=== PATIENT | female | born 1965 | race Two or more races ===

== ENCOUNTER 2024-06-23 12:44 | Inpatient (IN) | payer MEDICAID, OTHER ==
[~2024-06-23] VITALS: Ht 162.6 cm; Wt 95.2 kg
[2024-06-23] MEDS: LORazepam 2MG/ML-1ML VIAL IV ONE (12:45)
[2024-06-23] MEDS: ONDANSETRON HCL 4 MG/2 ML VIAL IV ONE (12:45)
[2024-06-23] MEDS ORDERED: LORazepam 2MG/ML-1ML VIAL ONE (12:47)
[2024-06-23] MEDS: ONDANSETRON HCL 4 MG/2 ML VIAL ONE (12:49)
[2024-06-23] MEDS: ADENOSINE 6 MG/2 ML INJ IV ONE ×2 (12:50→12:54)
[2024-06-23] MEDS: AMIODARONE BOLUS KIT 100 ML IV ONE (13:07)
--- NOTE | 2024-06-23 13:12 | ED.PDOC ---
HPI Comments 59 year old female brought in by nurses presents to the ED with chief complaint of tachycardia. 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 Patient is alert and awake, able to answer questions. Patient relays that she tried the Valsalva maneuver multiple times with no relief and was provided LR by nursing staff when taking her down to the ED. Patient denies any chest pain, SOB, headache, or N/V. Time Seen by MD: 13:06 Primary Care Provider: UMAIR Reviewed Notes: Nurses Notes, Medications, Allergies Allergies: Coded Allergies: Hydromorphone (Verified Allergy, Unknown, 06/23/24) Latex (Verified Allergy, Unknown, 06/23/24) Information Source: Patient, Emergency Med Personnel Mode of Arrival: Rud[place]ennis Severity: Moderate Timing: Hours Duration: Since onset Prehospital treatment: IVF Onset: At Rest Cardiac Risk Factors: HTN PE Risk Factors: None History of: None Associated Signs and Symptoms: Palpitations Past Medical History PAST MEDICAL HISTORY: Arthritis, Asthma, HTN Surgical History: Denies all surgeries HEALTH TECH History: Denies all HEALTH TECH Hx Family History Family History: No family hx of DM, No family hx of Heart lisset Social History Smoker: Non-Smoker Alcohol: Denies ETOH Use Drugs: Denies Drug Use Lives In: Home Constitutional: denies: chills, diaphoresis, fatigue, fever, malaise, sweats, weakness, others EENTM: denies: blurred vision, double vision, ear bleeding, ear discharge, ear drainage, ear pain, ear ringing, eye pain, eye redness, hearing loss, mouth pain, mouth swelling, nasal discharge, nose bleeding, nose congestion, nose pain, photophobia, tearing, throat pain, throat swelling, voice changes, others Respiratory: denies: cough, hemoptysis, orthopnea, SOB at rest, shortness of breath, SOB with excertion, stridor, wheezing, others Cardiovascular: reports: lightheadedness, palpitations, others (Tachycardia); denies: chest pain, dizzy spells, diaphoresis, Dyspnea on exertion, edema, irregular heart beat, left arm pain, PND, syncope Gastrointestinal: denies: abdomen distended, abdominal pain, blood streaked bowels, constipated, diarrhea, dysphagia, difficulty swallowing, hematemesis, melena, nausea, poor appetite, poor fluid intake, rectal bleeding, rectal pain, vomiting, others Genitourinary: denies: abnormal vagina bleeding, burning, dyspareunia, dysuria, flank pain, frequency, hematuria, incontinence, pain, , vagina discharge, urgency, others Neurological: reports: dizziness; denies: fainting, headache, left sided numbness, left sided weakness, numbness, paresthesia, pre-existing deficit, right sided numbness, right sided weakness, seizure, speech problems, tingling, tremors, weakness, others Musculoskeletal: denies: back pain, gout, joint pain, joint swelling, muscle pain, muscle stiffness, neck pain, others Integumetry: denies: bruises, change in color, change in hair/nails, dryness, laceration, lesions, lumps, rash, wounds, others Allergic/Immunocompromised: denies: Difficulty Healing, Frequent Infections, Hives, Itching, others Hematologic/Lymphatic: denies: anemia, blood clots, easy bleeding, easy bruising, swollen glands, others Endocrine: denies: excessive hunger, excessive sweating, excessive thirst, excessive urination, flushing, intolerance to cold, intolerance to heat, unexplained weight gain, unexplained weight loss, others Psychiatric: denies: anxiety, bipolar disorder, depression, hopeless, panic disorder, schizophrenia, sleepless, suicidal, others All Other Systems: Reviewed and Negative Physical Exam General Appearance: Normal, Severe Distress HEENT: Normal ENT Inspection, PERRL/EOMI Neck: Full Range of Motion, Non-Tender, Normal, Normal Inspection Respiratory: Chest Non-Tender, Lungs Clear, No Accessory Muscle Use, No Respiratory Distress, Normal Breath Sounds Cardiovascular: No Edema, No JVD, No Murmur, No Gallop, Normal Peripheral Pulses, Tachycardia Breast Exam: Deferred Gastrointestinal: No Organomegaly, Non Tender, No Pulsatile Mass, Normal Bowel Sounds, Soft Genitalia: Deferred Pelvic: Deferred Rectal: Deferred Extremities: No calf tenderness, Normal capillary refill, Normal inspection, Normal range of motion, Non-tender, No pedal edema Musculoskeletal : Apperance: Normal Neurologic: Alert, director embalmer II-XII nml as Tested, No Motor Deficits, Normal Affect, Normal Mood, No Sensory Deficits Cerebellar Function: NOT DONE Reflexes: NOT DONE Skin: Dry, Normal Color, Warm Peripheral Pulses: 3+ Radial (R), 3+ Radial (L) Lymphatic: No Adenopathy Was a procedure done? Was a procedure done?: No CP Differential Dx Differential Diagnosis: A-fib, A-Flutter, Angina, Anxiety / Panic Attack, Atrial Dysrhythmia, Electrolyte Disorder X-Ray, Labs, Meds, VS Vital Signs Date Time Temp Pulse Resp B/P (MAP) Pulse Ox O2 Delivery O2 Flow Rate FiO2 06/23/24 14:04 89 20 141/75 (97) 97 06/23/24 13:52 86 06/23/24 13:47 83 20 96 Nasal Cannula* 2 28 06/23/24 13:47 98 Nasal Cannula* 2 28 06/23/24 13:15 97.8 165 20 140/92 (108) 96 06/23/24 12:51 166 06/23/24 12:47 168 06/23/24 12:45 97.8 165 20 140/92 (108) 96 97.8 Lab Test 06/23/24 14:24 06/23/24 13:36 Range/Units Troponin I High Sensitivity 13 4 </=34 ng/L White Blood Count 8.0 4.4-10.8 10^3/uL Red Blood Count 4.85 4.0-5.20 10^6/uL Hemoglobin 14.8 12.2-16.2 g/dL Hematocrit 43.4 36.0-46.0 % Mean Corpuscular Volume 89.5 80.0-100.0 fL Mean Corpuscular Hemoglobin 30.5 28.0-32.0 pg Mean Corpuscular Hemoglobin Concent 34.1 32.0-36.0 g/dL Red Cell Distribution Width 13.7 11.8-14.3 % Platelet Count 207 140-450 10^3/uL Mean Platelet Volume 10.5 6.9-10.8 fL Neutrophils (%) (Auto) 47.7 37.0-80.0 % Lymphocytes (%) (Auto) 45.3 10.0-50.0 % Monocytes (%) (Auto) 5.0 0.0-12.0 % Eosinophils (%) (Auto) 1.6 0.0-7.0 % Basophils (%) (Auto) 0.4 0.0-2.0 % Neutrophils # (Auto) 3.8 1.6-8.6 10 ^3/uL Lymphocytes # (Auto) 3.6 0.4-5.4 10 ^3/uL Monocytes # (Auto) 0.4 0-1.3 10 ^3/uL Eosinophils # (Auto) 0.1 0-0.8 10 ^3/uL Basophils # (Auto) 0 0-0.2 10 ^3/uL Nucleated Red Blood Cells 0.1 % Sodium Level 144 136-145 mmol/L Potassium Level 3.1 L 3.5-5.1 mmol/L Chloride Level 109 H 98-107 mmol/L Carbon Dioxide Level 25 20-31 mmol/L Anion Gap 10 5-15 Blood Urea Nitrogen 18 9-23 mg/dL Creatinine 0.96 0.550-1.02 mg/dL Glomerular Filtration Rate Calc 68 >90 mL/min BUN/Creatinine Ratio 18.8 10.0-20.0 Serum Glucose 139 H 74-106 mg/dL Calcium Level 9.5 8.7-10.4 mg/dL Magnesium Level 1.8 1.6-2.6 mg/dL Thyroid Stimulating Hormone (TSH) 1.75 0.55-4.78 uIU/mL Current Medications Medications (Trade) Dose Ordered Sig/Cindy Route Start Time Stop Time Status Last Admin Sodium Chloride 1,000 ml @ 150 mls/hr Q6H40M ONCE IV 06/23/24 13:15 06/23/24 19:54 06/23/24 14:31 Amiodarone HCl 100 ml @ 618 mls/hr ONCE ONCE IV 06/23/24 13:15 06/23/24 13:24 DC 06/23/24 13:07 Amiodarone HCl 250 ml @ 33.333 mls/ hr Q7H30M IV 06/23/24 13:15 06/23/24 19:14 06/23/24 14:27 Potassium Bicarbonate (Klor-Con/Ef) 50 meq ONCE ONCE PO 06/23/24 14:45 06/23/24 14:59 DC 06/23/24 15:05 Adenosine (Adenosine) 6 mg ONCE ONCE IV 06/23/24 15:00 06/23/24 15:07 DC 06/23/24 12:50 Patient brought from OR suite. Possibly V-tach versus SVT versus atrial fibrillation. Was given adenosine. Blood pressure stable. Adenosine did not change the rhythm. Rhythm became more irregular. Atrial fibrillation. Started amiodarone. EKG did show tachycardia. On re-evaluation patient slowly getting better. Potassium slightly low. Was given potassium. New onset atrial fibrillation. Explained to the patient. Continue cardiac monitoring. Time of 1ST Reevaluation: 14:06 Reevaluation 1ST: Unchanged Patient Education/Counseling: Diagnosis, Treatment Family Education/Counseling: No Family Present Additional Information The following tests were ordered, and results were reviewed by me: Chest XR, EKG, Echocardiogram, Troponin, CBC, BMP, UA Additional Information was gathered from interviewing the following independent historians: Nursing staff I reviewed and agreed with the following test results read by other providers: Chest XR, Echocardiogram I discussed treatment and results with medical personnel. Departure 1 Departure Time of Disposition: 14:27 Impression: Primary Impression: New onset atrial fibrillation Disposition: ADMITTED INPATIENT Admit to: Med Surg Condition: Guarded Critical Care Note Critical Care Time?: Yes (90 min-critical care time only) Stability Stability form required: No Heart Score Heart Score: Heart Score Response (Comments) Value History Moderate Suspicious 1 EKG Repolarization Disturb 1 Age 45-64 1 Risk Factors 1 or 2 risk factors 1 Troponin Normal limit 0 Total 4 I personally scribed for FATIMAH FORMAN MD ([email or web address]) on 06/23/24 at 13:12. Electronically submitted by Christopher Ayala ([email or web address]). I personally scribed for FATMIAH FORMAN MD ([email or web address]) on 06/23/24 at 16:08. Electronically submitted by Christopher Ayala ([email or web address]). FATIMAH FORMAN MD Jun 23, 2024 13:12
--- NOTE | 2024-06-23 13:27 | DVH ---
EXAM: XY CHEST PORTABLE Indication: sob Technique: Single frontal view of the chest was obtained Comparison: None FINDINGS: Lines and Tubes: None Lungs: No focal consolidation. Pulmonary edema. Pleura: No effusion. No pneumothorax. Cardiomediastinal contours: Prominence of the cardiac silhouette. Bones: No acute osseous abnormality. IMPRESSION: Mild cardiomegaly versus portable technique of exam. Mild pulmonary edema.
[2024-06-23 13:47] VITALS: PULSE 83; RESP 20; O2SAT 96
[2024-06-23 14:03] LABS: Basophils # (auto) 0 10 ^3/uL (0-0.2); Basophils % (auto) 0.4 % (0.0-2.0); Eosinophils # (auto) 0.1 10 ^3/uL (0-0.8); Eosinophils % (auto) 1.6 % (0.0-7.0); Hematocrit 43.4 % (36.0-46.0); Hemoglobin 14.8 g/dL (12.2-16.2); Lymphocytes # (auto) 3.6 10 ^3/uL (0.4-5.4); Lymphocytes % (auto) 45.3 % (10.0-50.0); Mean Corpuscular Hemoglobin 30.5 pg (28.0-32.0); Mean Corpuscular Hgb Conc. 34.1 g/dL (32.0-36.0); Mean Corpuscular Volume 89.5 fL (80.0-100.0); Monocytes # (auto) 0.4 10 ^3/uL (0-1.3); Neutrophils # (auto) 3.8 10 ^3/uL (1.6-8.6); Neutrophils % (auto) 47.7 % (37.0-80.0); Nucleated Red Blood Cells % 0.1 %; Platelet Count (auto) 207 10^3/uL (140-450); Red Blood Cells 4.85 10^6/uL (4.0-5.20); Red Cell Distribution Width 13.7 % (11.8-14.3)
[2024-06-23 14:23] LABS: Sodium 144 mmol/L (136-145)
[2024-06-23 14:24] LABS: Anion Gap 10 (5-15); Calcium 9.5 mg/dL (8.7-10.4); Carbon Dioxide 25 mmol/L (20-31); Chloride 109 mmol/L (98-107); Potassium 3.1 mmol/L (3.5-5.1)
[2024-06-23] MEDS: AMIODARONE 450mg/250ml AE 250 ML IV SCH ×2 (14:27→20:30)
[2024-06-23 14:29] LABS: BUN/Creatinine Ratio 18.8 (10.0-20.0); Blood Urea Nitrogen 18 mg/dL (9-23)
[2024-06-23 14:31] LABS: Glucose 139 mg/dL (74-106)
[2024-06-23] MEDS: SODIUM CHLORIDE 0.9% 1,000 ML IV ONE (14:31)
[2024-06-23] MEDS: MAGNESIUM SULFATE 1GM/100ML 100 ML IV ONE (15:00)
--- NOTE | 2024-06-23 15:01 | DVHINCON2 ---
Date Seen: Jun 23, 2024 Referring Physician MD Arcenio Reason for Consultation Questionable Vtach, then Afib History of Present Illness This is a 59-year-old female patient who presents to the emergency room with palpitations. 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 She mentions that her watch alerted her that her heart rate was elevated in the 160's. 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 She was then brought to the emergency room by coworkers for further evaluation. Initial twelve lead electrocardiogram reveals a wide complex tachycardia with left bundle branch block and prolonged QT interval. ER staff provided the patient with 6 mg of adenosine IV x1 followed by adenosine 12 mg IV x1 with no change in rhythm. ER staff then initiated the patient on an amiodarone bolus and drip and the patient was noted to convert into a normal sinus rhythm. Significant past medical history includes hypertension, asthma, environmental allergies, and obesity. The patient reports that she does not see a clinical material handler in the outpatient setting and does not currently have a primary care physician given that she lost her insurance. Past Medical History Past medical history reviewed. No other significant than mentioned above. Past Surgical History Denies all surgeries Family History Family history reviewed. Social History Denies the use of tobacco, alcohol or illicit drugs. Allergies: Coded Allergies: Hydromorphone (Verified Allergy, Unknown, 06/23/24) Latex (Verified Allergy, Unknown, 06/23/24) Home Meds Home medications reviewed. Current Medications Current Medications Medications (Trade) Dose Ordered Sig/Cindy Route PRN Reason Start Time Stop Time Status Last Admin Amiodarone HCl 250 ml @ 33.333 mls/ hr Q7H30M IV 06/23/24 13:15 06/23/24 19:14 06/23/24 14:27 Review of Systems Constitutional: No symptom reported Ears, Nose, & Throat: No symptom reported Eyes: No symptom reported Neurological: Dizziness, lightheadedness Pulmonary/Respiratory: No symptoms reported Cardiovascular: Palpitations Gastrointestinal: No symptom reported Genitourinary: No symptom reported Musculoskeletal: No symptom reported Skin: No symptom reported Psychiatric: No symptom reported Endocrine: No symptom reported Hematologic/Lymphatic: No symptom reported Vital Signs Vital Signs Date Time Temp Pulse Resp B/P (MAP) Pulse Ox O2 Delivery O2 Flow Rate FiO2 06/23/24 14:04 89 20 141/75 (97) 97 06/23/24 13:47 Nasal Cannula* 2 28 06/23/24 13:15 97.8 Physical Exam General Appearance: Cooperative. Obese Pulmonary/Respiratory: Clear, bilateral breaths sounds. Cardiovascular/Chest: Regular rate and rhythm. Peripheral Pulses: 2+ Radial (R). 2+ Radial (L). 2+ Pedal (R). 2+ Pedal (L) Abdominal Exam: Normal bowel sounds. Ankle Exam: Negative ankle edema Lower extremities: Negative lower extremity edema Neuro/Mental Status: A/OX4, coherent. Thoughts/Psych: Normal thought pattern. Appropriate mood and affect. Good judgment and insight. Appearance: No acute distress. Skin Exam: Normal inspection. Normal color. Warm and dry. Labs/Diagnostic Data Labs Test 06/23/24 13:36 Range/Units White Blood Count 8.0 4.4-10.8 10^3/uL Red Blood Count 4.85 4.0-5.20 10^6/uL Hemoglobin 14.8 12.2-16.2 g/dL Hematocrit 43.4 36.0-46.0 % Mean Corpuscular Volume 89.5 80.0-100.0 fL Mean Corpuscular Hemoglobin 30.5 28.0-32.0 pg Mean Corpuscular Hemoglobin Concent 34.1 32.0-36.0 g/dL Red Cell Distribution Width 13.7 11.8-14.3 % Platelet Count 207 140-450 10^3/uL Mean Platelet Volume 10.5 6.9-10.8 fL Neutrophils (%) (Auto) 47.7 37.0-80.0 % Lymphocytes (%) (Auto) 45.3 10.0-50.0 % Monocytes (%) (Auto) 5.0 0.0-12.0 % Eosinophils (%) (Auto) 1.6 0.0-7.0 % Basophils (%) (Auto) 0.4 0.0-2.0 % Neutrophils # (Auto) 3.8 1.6-8.6 10 ^3/uL Lymphocytes # (Auto) 3.6 0.4-5.4 10 ^3/uL Monocytes # (Auto) 0.4 0-1.3 10 ^3/uL Eosinophils # (Auto) 0.1 0-0.8 10 ^3/uL Basophils # (Auto) 0 0-0.2 10 ^3/uL Nucleated Red Blood Cells 0.1 % Sodium Level 144 136-145 mmol/L Potassium Level 3.1 L 3.5-5.1 mmol/L Chloride Level 109 H 98-107 mmol/L Carbon Dioxide Level 25 20-31 mmol/L Anion Gap 10 5-15 Blood Urea Nitrogen 18 9-23 mg/dL Creatinine 0.96 0.550-1.02 mg/dL Glomerular Filtration Rate Calc 68 >90 mL/min BUN/Creatinine Ratio 18.8 10.0-20.0 Serum Glucose 139 H 74-106 mg/dL Calcium Level 9.5 8.7-10.4 mg/dL Troponin I High Sensitivity 4 </=34 ng/L Assessment Wide complex tachycardia with left bundle branch ?SVT with aberrancy ?Atrial flutter Rule out structural heart disease Hypertension Hypokalemia Obese Plan/Recommendation We will continue with the following plan/recommendations (Dr. Benjamin): * Echocardiogram to evaluate cardiac function * Continue amiodarone drip per pharmacy protocol * Cardiac surveillance: Notify Cardiology team for any ECG changes * Monitor and replete electrolytes as needed, Keep K>4 and Mag>2 * EP consult Case discussed and reviewed with . reviewed electrocardiogram done in the emergency room. Patient noted to have a wide complex tachycardia with left bundle branch block. Questionable SVT with aberrancy, will consult EP for further management. In the meantime, proceed with obtaining a transthoracic echocardiogram to evaluate cardiac function. We will also recommend monitoring and replete electrolytes as needed. Thank you for allowing us to care for this patient. Please call with any questions or concerns. Critical care time spent: 40 minutes This medical document was created using an electronic medical record system with voice recognition software and computerized dictation system. Although this document has been carefully reviewed, there might still be some phonetic and typographical errors. Occasional wrong-word or ``sound-alike substitutions m ay have occurred due to the inherent limitations of voice recognition software. These areas are purely typographical due to imperfections of the software programs and do not reflect any compromise in the patient's medical care. Please read the chart carefully and recognize, using context, where these substitutions have occurred. Plan discussed with: Patient Date of Service: Jun 23, 2024 Billing Provider: FRANCES BENJAMIN MD Cardiology Common Codes: [id number] INP/OBS CARE (High) Cardiology Consultation Codes: [id number] CONSULT <45MIN MALIK OLIVA RETAIL SHIFT LEADER Jun 23, 2024 15:01
[2024-06-23] MEDS: POTASSIUM EFFERVESENT TAB 25 MEQ PO ONE (15:05)
[2024-06-23 16:33] LABS: Urine Bacteria None Seen /hpf (None Seen)
[2024-06-23] MEDS ORDERED: NITROGLYCERIN 0.4 MG SL TAB SL PRN (16:45)
[2024-06-23] MEDS ORDERED: ONDANSETRON HCL 4 MG/2 ML VIAL IV PRN (16:45)
[2024-06-23] MEDS ORDERED: MORPHINE SULFATE INJ 2 MG/ml SYRG IV PRN (16:45)
[2024-06-23] MEDS ORDERED: ACETAMINOPHEN 325 MG TAB PO PRN (16:45)
[2024-06-23] MEDS ORDERED: DOCUSATE SOD 100 MG CAP PO PRN (16:45)
[2024-06-23 16:47] LABS: Urine Amorphous Crystal FEW /hpf (None Seen); Urine Blood TRACE /uL (Negative); Urine Clarity Turbid (Clear); Urine Color Light-Yellow (Yellow); Urine Protein, UAD Negative (Negative); Urine Specific Gravity 1.015 (1.001-1.035); Urine Urobilinogen Normal (Negative); Urine WBC 3 /hpf (0 - 5); Urine pH 7.5 (5.0-9.0)
--- NOTE | 2024-06-23 16:52 | DVHHP2 ---
History of Present Illness Reason for Visit: Palpitations History of Present Illness Sherri Phillips is a 59-year-old female with past medical history of hypertension, obesity, and asthma, who came to the ER for palpitations. 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 She received an alert from her watching telling her that her HR is >160. Patient was taken to ER and found to be in a wide complex tachycardia. She was given 6mg of Adenosine, then 12 mg of Adenosine, with no change in her heart rate/rhythm. She was then given IV amiodarone bolus followed by IV drip, and her heart rate decreased to the 80's. Patient states that she takes Cardizem at home for her hypertension, but is unsure of the dose. I asked her spouse to please bring in her medication. Cardiovascular: HTN Pulmonary: Asthma Past Surgical History: Other (right wrist), Tubal Ligation Family History: None Smoke: No ALCOHOL: none Drugs: None Lives: with Family Domestic Violence: Neg Review of Systems Constitutional: No: Fever, Chills, Sweats, Weakness, Malaise, Other Eyes: No: Pain, Vision change, Conjunctivae inflammation, Eyelid inflammation, Other, Redness ENT: No: Ear pain, Ear discharge, Nose pain, Nose discharge, Nose congestion, Mouth pain, Mouth swelling, Throat pain, Throat swelling, Other Respiratory: No: Cough, Dry, Shortness of breath, SOB with excertion, Wheezing, Hemoptysis, Pleuritic Pain, Sputum, Wheezing, Other Cardiovascular: Palpitations, Lt Headedness; No: Chest Pain, Orthopnea, Paroxysmal Noc. Dyspnea, Edema, Other Gastrointestinal: No: Nausea, Vomiting, Abdominal Pain, Diarrhea, Constipation, Melena, Hematochezia, Other Genitourinary: No Dysuria, No Frequency, No Incontinence, No Hematuria, No Retention, No Other Musculoskeletal: No: other, neck pain, shoulder pain, arm pain, back pain, hand pain, leg pain, foot pain Skin: No: Rash, Lesions, Jaundice, Bruising, Other Neurological: No: Weakness, Numbness, Incoordination, Change in speech, Confusion, Seizures, Other Allergies: Coded Allergies: Hydromorphone (Verified Allergy, Unknown, 06/23/24) Latex (Verified Allergy, Unknown, 06/23/24) Medications Current Medications Medications Dose Ordered Sig/Cindy Route Start Time Stop Time Status Last Admin Dose Admin Amiodarone HCl 250 ml @ 33.333 mls/ hr Q7H30M IV 06/23/24 13:15 06/23/24 19:14 06/23/24 14:27 33.333 MLS/HR Hydralazine HCl 10 mg Q6HP PRN IV 06/23/24 15:00 Exam Vital Signs Vital Signs Date Time Temp Pulse Resp B/P (MAP) Pulse Ox O2 Delivery O2 Flow Rate FiO2 06/23/24 16:00 86 06/23/24 14:04 20 141/75 (97) 97 06/23/24 13:47 Nasal Cannula* 2 28 06/23/24 13:15 97.8 General Appearance: Alert, Oriented X3, Cooperative, mild distress HEENT: Atraumatic, PERRLA Respiratory: Clear to auscultation, Normal air movement Cardiovascular: Normal S1, Normal S2, Other (Atrial fibrilation) Abdominal: Normal bowel sounds, Soft, No tenderness Extremities: No clubbing, No cyanosis, No edema, Normal pulses Skin: No rashes, No breakdown, No significant lesion Neuro: Normal gait, Normal speech, Strength at 5/5 X4 ext, Normal tone Psych/Mental Status: Mental status NL, Mood NL Labs/Xrays Labs Test 06/23/24 16:19 06/23/24 14:24 06/23/24 13:36 Range/Units Troponin I High Sensitivity 13 </=34 ng/L White Blood Count 8.0 4.4-10.8 10^3/uL Red Blood Count 4.85 4.0-5.20 10^6/uL Hemoglobin 14.8 12.2-16.2 g/dL Hematocrit 43.4 36.0-46.0 % Mean Corpuscular Volume 89.5 80.0-100.0 fL Mean Corpuscular Hemoglobin 30.5 28.0-32.0 pg Mean Corpuscular Hemoglobin Concent 34.1 32.0-36.0 g/dL Red Cell Distribution Width 13.7 11.8-14.3 % Platelet Count 207 140-450 10^3/uL Mean Platelet Volume 10.5 6.9-10.8 fL Neutrophils (%) (Auto) 47.7 37.0-80.0 % Lymphocytes (%) (Auto) 45.3 10.0-50.0 % Monocytes (%) (Auto) 5.0 0.0-12.0 % Eosinophils (%) (Auto) 1.6 0.0-7.0 % Basophils (%) (Auto) 0.4 0.0-2.0 % Neutrophils # (Auto) 3.8 1.6-8.6 10 ^3/uL Lymphocytes # (Auto) 3.6 0.4-5.4 10 ^3/uL Monocytes # (Auto) 0.4 0-1.3 10 ^3/uL Eosinophils # (Auto) 0.1 0-0.8 10 ^3/uL Basophils # (Auto) 0 0-0.2 10 ^3/uL Nucleated Red Blood Cells 0.1 % Sodium Level 144 136-145 mmol/L Potassium Level 3.1 L 3.5-5.1 mmol/L Chloride Level 109 H 98-107 mmol/L Carbon Dioxide Level 25 20-31 mmol/L Anion Gap 10 5-15 Blood Urea Nitrogen 18 9-23 mg/dL Creatinine 0.96 0.550-1.02 mg/dL Glomerular Filtration Rate Calc 68 >90 mL/min BUN/Creatinine Ratio 18.8 10.0-20.0 Serum Glucose 139 H 74-106 mg/dL Calcium Level 9.5 8.7-10.4 mg/dL Magnesium Level 1.8 1.6-2.6 mg/dL Thyroid Stimulating Hormone (TSH) 1.75 0.55-4.78 uIU/mL EXAM: XY CHEST PORTABLE FINDINGS: Lines and Tubes: None Lungs: No focal consolidation. Pulmonary edema. Pleura: No effusion. No pneumothorax. Cardiomediastinal contours: Prominence of the cardiac silhouette. Bones: No acute osseous abnormality. IMPRESSION: Mild cardiomegaly versus portable technique of exam. Mild pulmonary edema. Assessment/Plan Assessment/Plan Assessment: New onset atrial fibrillation, Hypokalemia, Hypertension, Obesity, Plan: Admit to Tele, Cardiology consult, EP consult, IV amiodarone, Manage/Monitor electrolytes, Continuous cardiac monitoring, Family is to bring in home medication list, Plan discussed with: Patient, Spouse My Orders Orders - NEGAR JOHNSON Procedure Category Date Status Time Admit ADMIT 12/19/24 Verified 16:36 Code Status CODE 06/23/24 Verified 16:36 2 Gm Sodium Diet DIET 06/23/24 Verified Dinner Sodium Chloride Lock PHA 06/23/24 Verified (Saline Lock Ns) 22:00 Hydrocodone-Acet [facility] 06/23/24 Verified 5/325mg Tab ([place] 16:45 Ondansetron Hcl [facility] 06/23/24 Verified (Zofran) 16:45 Docusate Sodium PHA 06/23/24 Verified Capsule (Colace 16:45 Complete Blood Count LAB 06/24/24 Verified 04:00 Comprehensive LAB 06/24/24 Verified Metabolic Panel 04:00 Condition: Serious [employer] [facility] 06/23/24 Verified 16:36 Acetaminophen Tablet [facility] 06/23/24 Verified (Tylenol Tablet) 16:45 Nitroglycerin [facility] 06/23/24 Verified Sublingual (Ntrostat 16:45 Morphine Sulfate [facility] 06/23/24 Verified Injection 16:45 Stat Ekg For Chest [facility] 06/23/24 Verified Pain 16:36 Notify Md Of Changes [facility] 06/23/24 Verified From Base 16:36 Signals Intelligence Analyst For [facility] 06/23/24 Verified 24 Hours 16:36 Emergency Dysrhythmia [facility] 06/23/24 Verified Protocol 16:36 Rhythm Strips Once [facility] 06/23/24 Verified Every Shift 16:36 Oxygen By Nasal RT 06/23/24 Verified Cannula 16:36 Date of Service: Jun 23, 2024 Billing Provider: NEGAR JOHNSON Common Visit Codes: [id number] INP/OBS CARE (MOD) NEGAR JOHNSON Jun 23, 2024 16:52
[2024-06-23 16:54] LABS: Amphetamine Screen, Urine Neg (NEGATIVE); Barbiturate Scree,Urine Neg (NEGATIVE); Benzodiazephine Screen, Urine Neg (NEGATIVE); Cannabinoid Screen, Urine Neg (NEGATIVE); Cocaine Screen, Urine Neg (NEGATIVE); Opiate Scree,Urine Neg (NEGATIVE); Phencyclidine Screen, Urine Neg (NEGATIVE)
[2024-06-23 20:00] VITALS: PULSE 70; RESP 13; O2SAT 95
[2024-06-23] MEDS: SODIUM CHLOR 0.9% PF (SALINE LOCK) 10ML VIAL/SYR IV SCH (22:00)
[2024-06-24] VITALS (8 sets, daily range): BP systolic 126–179; BP diastolic 51–82; PULSE 63–74; RESP 16–18; TEMP 97.8–98.2; O2SAT 94–97
[2024-06-24] MEDS: HYDROcodone-ACET 5/325MG TAB PO PRN (00:12)
[2024-06-24] MEDS: hydrALAZINE HCL 20 MG/ML VL IV PRN (00:12)
[2024-06-24] MEDS ORDERED: POTASSIUM CHL 20MEQ/100ML 100 ML IV SCH (08:30)
[2024-06-24 08:35] LABS: Basophils # (auto) 0 10 ^3/uL (0-0.2); Basophils % (auto) 0.3 % (0.0-2.0); Eosinophils # (auto) 0.2 10 ^3/uL (0-0.8); Eosinophils % (auto) 2.2 % (0.0-7.0); Hematocrit 45.8 % (36.0-46.0); Hemoglobin 15.5 g/dL (12.2-16.2); Lymphocytes # (auto) 3.7 10 ^3/uL (0.4-5.4); Lymphocytes % (auto) 41.2 % (10.0-50.0); Mean Corpuscular Hemoglobin 30.6 pg (28.0-32.0); Mean Corpuscular Hgb Conc. 33.9 g/dL (32.0-36.0); Mean Corpuscular Volume 90.5 fL (80.0-100.0); Monocytes # (auto) 0.6 10 ^3/uL (0-1.3); Monocytes % (auto) 6.9 % (0.0-12.0); Neutrophils # (auto) 4.4 10 ^3/uL (1.6-8.6); Neutrophils % (auto) 49.4 % (37.0-80.0); Nucleated Red Blood Cells % 0.1 %; Platelet Count (auto) 195 10^3/uL (140-450); Red Blood Cells 5.06 10^6/uL (4.0-5.20); Red Cell Distribution Width 14.1 % (11.8-14.3); White Blood Cell 8.9 10^3/uL (4.4-10.8)
[2024-06-24] MEDS: HYALURONIDASE 150 UNIT/1 ML SUBCUT ONE (08:45)
[2024-06-24] MEDS ORDERED: MAGNESIUM SULFATE 1GM/100ML 100 ML IV SCH (09:00)
[2024-06-24 09:30] LABS: Alanine Aminotransferase 18 U/L (7-40); Albumin 4.1 g/dL (3.2-4.8); Anion Gap 6 (5-15); Aspartate Aminotransferase 25 U/L (13-40); Blood Urea Nitrogen 9 mg/dL (9-23); Calcium 9.3 mg/dL (8.7-10.4); Carbon Dioxide 26 mmol/L (20-31); Glucose 93 mg/dL (74-106); Sodium 141 mmol/L (136-145); Total Protein 6.9 g/dL (5.7-8.2)
[2024-06-24 09:39] LABS: Alkaline Phosphatase 129 U/L (46-116); Bilirubin, Total 1.5 mg/dL (0.2-1.0); Chloride 109 mmol/L (98-107); Potassium 3.2 mmol/L (3.5-5.1)
[2024-06-24 09:51] LABS: Magnesium 1.9 mg/dL (1.6-2.6)
[2024-06-24] MEDS ORDERED: NIFEdipine ER 30 MG TAB PO SCH (10:00)
--- NOTE | 2024-06-24 10:18 | DVHSR ---
APPROVED REPORT EXAM: LIMITED Two-dimensional and M-mode echocardiogram with Doppler and color Doppler. Blood Pressure: 133/77 mmHg INDICATION EF RISK FACTORS Obesity: Height: 5' 4", Weight: 200 DIMENSIONS LVDd4.0 (3.8-5.7cm)LA (2D)4.2 (1.9-4.0cm)Aortic Root2.5 (2.0-3.7cm) LVDs2.5 (2.5-4.0cm)LA (MM) (1.9-4.0cm)Aortic Cusp Exc1.5 (1.5-2.0cm) EF (%) 66.0 (55-70%)Rt. Atrium3.9 (1.9-4.0cm)Asc. Aorta cm IVSd1.0 (0.7-1.1cm)RV (D) (1.8-2.4cm) PWd1.1 (0.7-1.1cm) Mitral Valve MitralMitral Stenosis E wave0.80m/sMV Mean GR.mmHg A wave1.10m/sMV Peak GR.mmHg E/A ratio0.72D MVAcm2 Aortic Valve Aortic ValveAortic Stenosis V10.80m/Carmencita Mean GR.5mmHg V21.40m/Carmencita Peak GR.9mmHg LVOT Diameter2.0 (1.8-2.4cm)Doppler AVA1.79cm2 Other Information Quality : Technically LimitedRhythm : Technically limited study due to body habitus. Conclusion Normal left ventricular size and dimension. Normal right ventricular systolic function estimated eje ction fraction 55%. There is a grade 1 diastolic dysfunction. Normal right ventricular size and dimension. Normal right ventricular systolic function. Normal biatrial size and dimension. Normal aortic valve structure and function. Normal mitral valve structure and function. Normal tricuspid valve structure and function. The pulmonary valve is grossly normal. No pericardial effusion.
[2024-06-24] MEDS: POTASSIUM EFFERVESENT TAB 25 MEQ GT ONE (10:23)
[2024-06-24] MEDS: MAGNESIUM OXIDE 400 MG TAB PO ONE (11:47)
[2024-06-24] MEDS: AMIODARONE HCL 200 MG TAB PO ONE (11:48)
--- NOTE | 2024-06-24 12:29 | DVHPN2 ---
Consult Progress Note Subjective Other Systems: Remains in normal sinus rhythm on continuous cardiac technologist. No cardiac events reported Objective vital signs Vital Sign Date Time Temp Pulse Resp B/P (MAP) Pulse Ox O2 Delivery O2 Flow Rate FiO2 06/24/24 08:45 98.1 67 16 149/59 (89) 94 98.1 06/24/24 08:00 Room Air* 0 21 Total Intake and Output 06/23/24 06/23/24 06/24/24 15:00 23:00 07:00 Intake Total 100 ml 1299.999 ml 300 ml Balance 100 ml 1299.999 ml 300 ml medications Current Medications Medications Dose Ordered Sig/Cindy Route Start Time Stop Time Status Last Admin Dose Admin Hydralazine HCl 10 mg Q6HP PRN IV 06/23/24 15:00 06/24/24 00:12 10 MG Sodium Chloride 10 ml Q8HR IV 06/23/24 22:00 06/24/24 05:26 10 ML Acetaminophen/ Hydrocodone Bitart 1 tab Q4HP PRN PO 06/23/24 16:45 06/24/24 00:12 1 TAB Ondansetron HCl 4 mg Q4HP PRN IV 06/23/24 16:45 Docusate Sodium 100 mg BIDPRN PRN PO 06/23/24 16:45 Acetaminophen 650 mg Q6HP PRN PO 06/23/24 16:45 Nitroglycerin 0.4 mg Q5MINP PRN SL 06/23/24 16:45 Morphine Sulfate 2 mg Q30M PRN IV 06/23/24 16:45 Magnesium Sulfate/ Dextrose 100 ml @ 100 mls/hr Q1HR IV 06/24/24 09:00 Hold Potassium Chloride 100 ml @ 50 mls/hr Q2H IV 06/24/24 08:30 Hold Nifedipine 60 mg DAILY PO 06/25/24 10:00 Amiodarone HCl 200 mg Q12HR PO 06/24/24 22:00 Examination: GENERAL:Normal, LUNGS:Normal, CVS:Normal, NEURO:Normal laboratory and microbiology Laboratory Tests 06/24/24 07:58 Test 06/24/24 07:58 Range/Units Serum Glucose 93 74-106 mg/dL Problem List/Assessment/Plan Problem List/Assessment/Plan Wide complex tachycardia with left bundle branch ?SVT with aberrancy ?Atrial flutter Hypertension Hypokalemia Obese Plan/Recommendation (Dr. Benjamin): * Echocardiogram reveals EF 55% * Transition to oral Amiodarone * Cardiac surveillance: Notify Cardiology team for any ECG changes * Monitor and replete electrolytes as needed, Keep K>4 and Mag>2 * EP consult Patient now back in normal sinus rhythm, no cardiac events overnight. Continue with medical management. Awaiting EP consult. Thank you for allowing us to care for this patient. Please call with any questions or concerns. This medical document was created using an electronic medical record system with voice recognition software and computerized dictation system. Although this document has been carefully reviewed, there might still be some phonetic and typographical errors. Occasional wrong-word or ``sound-alike substitutions may have occurred due to the inherent limitations of voice recognition software. These areas are purely typographical due to imperfections of the software programs and do not reflect any compromise in the patient's medical care. Please read the chart carefully and recognize, using context, where these substitutions have occurred. Plan discussed with: Patient, Other (Bedside RN) Date of Service: Jun 24, 2024 Billing Provider: FRANCES BENJAMIN MD Common Visit Codes: [id number] INP/OBS CARE(HIGH) MALIK OLIVA [facility] Jun 24, 2024 12:29
[2024-06-24] MEDS: NIFEdipine ER 30 MG TAB PO ONE (12:38)
--- NOTE | 2024-06-24 13:46 | ECG ---
[facility] Test Date: 2024-06-23 Test Time: 12:51:19 Pat Name: SEVERIANO BRISENO [facility] F Assistant Reading Teacher: eduard : 1965 Requested By: FATIMAH FORMAN Order Number: [id number] Reading MD: Bryant Hansen Measurements Intervals [place] Rate: 166 P: -58 [place]: 102 QRS: -26 QRSD: 124 T: 81 QT: 324 QTc: 539 Interpretive Statements Wide-QRS tachycardia Left bundle branch block Electronically Signed On 06-24-2024 16:44:57 PST by Bryant Hansen Please click the below link to view image of tracing.
[2024-06-24] MEDS ORDERED: methylPREDNISolone SOD SUCC 40 MG/ML VL IV ONE (14:00)
--- NOTE | 2024-06-24 14:28 | ECG ---
[facility] Test Date: 2024-06-23 Test Time: 13:52:11 Pat Name: SEVERIANO BRISENO [facility] Charge Weigher: KANIKA : 1965 Requested By: FATIMAH FORMAN Order Number: [id number] Reading MD: Bryant Hansen Measurements Intervals [place] Rate: 86 P: 37 [place]: 166 QRS: 63 QRSD: 97 T: 42 QT: 405 QTc: 485 Interpretive Statements Sinus rhythm Low voltage, precordial leads Electronically Signed On 06-24-2024 16:46:56 PST by Bryant Hansen Please click the below link to view image of tracing.
[2024-06-24] MEDS: POTASSIUM EFFERVESENT TAB 25 MEQ PO ONE (14:38)
[2024-06-24] MEDS: NIFEdipine ER 30 MG TAB PO SCH (14:38)
--- NOTE | 2024-06-24 20:07 | DVHPNRES ---
Progress Note Date Seen: Jun 24, 2024 Resident Creating Document: JAMES MAY LANDEN Has the PT tested + for MRSA If YES, has PT been informed?: No Medical Necessity Reason Pt with a Central, PICC or Fol: No Subjective Review of Systems This is a 59-year-old female patient who presents to the emergency room with palpitations. 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 She mentions that her watch alerted her that her heart rate was elevated in the 160's. 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 She was then brought to the emergency room by coworkers for further evaluation. Initial twelve lead electrocardiogram reveals a wide complex tachycardia with left bundle branch block and prolonged QT interval. ER staff provided the patient with 6 mg of adenosine IV x1 followed by adenosine 12 mg IV x1 with no change in rhythm. ER staff then initiated the patient on an amiodarone bolus and drip and the patient was noted to convert into a normal sinus rhythm. Significant past medical history includes hypertension, asthma, environmental allergies, and obesity. PMHx: Hypertension, asthma, PSHx: Tubal ligation Family history: Noncontributory Social history: Denies smoking, using alcohol and any other drug use. Home medication: albuterol as needed Allergic history: Lasix and hydromorphone Today, the patient seen and examined at the bedside. Patient is feeling better and did not complain of palpitation. Objective vital signs Vital Sign Date Time Temp Pulse Resp B/P (MAP) Pulse Ox O2 Delivery O2 Flow Rate FiO2 06/24/24 16:45 98.2 74 18 161/82 (108) 96 98.2 06/24/24 08:00 Room Air* 0 21 Total Intake and Output 06/23/24 06/23/24 06/24/24 15:00 23:00 07:00 Intake Total 100 ml 1299.999 ml 300 ml Balance 100 ml 1299.999 ml 300 ml medications Current Medications Medications Dose Ordered Sig/Cindy Route Start Time Stop Time Status Last Admin Dose Admin Hydralazine HCl 10 mg Q6HP PRN IV 06/23/24 15:00 06/24/24 00:12 10 MG Sodium Chloride 10 ml Q8HR IV 06/23/24 22:00 06/24/24 14:39 10 ML Acetaminophen/ Hydrocodone Bitart 1 tab Q4HP PRN PO 06/23/24 16:45 06/24/24 00:12 1 TAB Ondansetron HCl 4 mg Q4HP PRN IV 06/23/24 16:45 Docusate Sodium 100 mg BIDPRN PRN PO 06/23/24 16:45 Acetaminophen 650 mg Q6HP PRN PO 06/23/24 16:45 Nitroglycerin 0.4 mg Q5MINP PRN SL 06/23/24 16:45 Morphine Sulfate 2 mg Q30M PRN IV 06/23/24 16:45 Magnesium Sulfate/ Dextrose 100 ml @ 100 mls/hr Q1HR IV 06/24/24 09:00 Hold Potassium Chloride 100 ml @ 50 mls/hr Q2H IV 06/24/24 08:30 Hold Nifedipine 90 mg DAILY PO 06/24/24 13:30 06/24/24 14:38 90 MG Metoprolol Tartrate 25 mg BID PO 06/24/24 22:00 Amiodarone HCl 200 mg HS PO 06/25/24 22:00 Examination General Appearance: Alert, Oriented X3, Cooperative, No acute distress HEENT: Atraumatic, PERRLA, EOMI, Mucous membrane moist/pink Respiratory: Clear to auscultation, Normal air movement Cardiovascular: Regular rate, Normal S1, Normal S2, No murmurs, no chest wall tenderness Abdominal: Normal bowel sounds, Soft, No tenderness, No hepatospenomegaly, No masses Extremities: No clubbing, No cyanosis, No edema, Normal pulses, No tenderness/swelling Skin: No rashes, No breakdown, No significant lesion Neuro: Normal gait, Normal speech, Strength at 5/5 X4 ext, Normal tone, Sensation intact, Cranial nerves 3-12 NL, Reflexes 2+ Psych/Mental Status: Mental status NL, Mood NL laboratory and microbiology Laboratory Tests 06/24/24 07:58 Test 06/24/24 07:58 Range/Units Serum Glucose 93 74-106 mg/dL Labs and/or images reviewed: Labs reviewed by me, Image(s) reviewed by me Problem List/Assessment/Plan Problem List/Assessment/Plan Acute hypoxic respiratory failure, likely due to heart failure/pulmonary congestion Acute systolic heart failure, likely due to ventricular tachycardia Ventricular tachycardia/PSVT, likely due to electrolyte imbalance/ischemia Non ST-elevation NH type 2, likely due to ventricular tachycardia Echocardiogram shows normal left ventricular EF 55%, grade 1 diastolic dysfunction Oxygen was given through nasal cannula Ventricular tachycardia, reverted to sinus rhythm with pharmacological cardioversion, amiodarone Continue amiodarone oral 200 mg HS Metoprolol 25 mg b.i.d. p.o. Nifedipine 90 mg daily Electrolytes were supplemented Cardiology on the board, recommended oral amiodarone EP is on the board Hypertension Nifedipine 90 mg daily Metoprolol 25 mg b.i.d. p.o. Hydralazine 10 mg p.r.n. q.6 Asthma Stable Obesity The patient was counseled for the healthy lifestyle including healthy eating habits and physical activity Hypokalemia Supplemented Hypomagnesemia Supplemented DIET: Cardiac diet DVT PROPHYLAXIS: Lovenox GI PROPHYLAXIS:: No indication BOWEL REGIMEN: Docusate 100 mg b.i.d. p.r.n. ACP: Goal of care discussed were more than 22 minutes with the patient, full code DISPOSITION: telemetry PATIENT'S STATUS DISCUSSED WITH patient and at the bedside CASE DISCUSSED WITH DR. Cardenas Plan discussed with: Patient, Spouse, Other (rn) My Orders My Orders Orders - JAMES MAY RESDIELIZABETH Procedure Category Date Status Time Magnesium Sulfate PHA 06/24/24 In Process 1gm/100ml 09:00 Potassium Chl PHA 06/24/24 In Process 20meq/100ml 08:30 Nifedipine Er PHA 06/24/24 In Process (Procardia Xl 13:30 Date of Service: Jun 24, 2024 Billing Provider: MEENA HERNANDEZ MD Common Visit Codes: [id number] INP/OBS CARE(HIGH) Secondary Visit Codes: [id number] CARE PLAN 30 MINUTES JAMES MAY RESDIENT Jun 24, 2024 20:07 MEENA HERNANDEZ MD Jun 27, 2024 11:35
[2024-06-24] MEDS ORDERED: AMIODARONE HCL 200 MG TAB PO SCH (22:00)
[2024-06-24] MEDS ORDERED: METOPROLOL TARTRATE 25 MG TAB PO SCH (22:00)
--- NOTE | 2024-06-24 22:30 | DVHINCON2 ---
Date of service: Jun 24, 2024 Referring Physician Alona Silver NP Reason for Consultation Arrhythmia Evaluation History of Present Illness This is a 59-year-old female who initially presented (06/23/2024) with reported palpitations. 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 She mentions at that time, her watch alerted her that her heart rate was elevated and given symptomatic nature she underwent subsequent evaluation within the ED. Upon ED arrival, 12-lead electrocardiogram was performed revealing supraventricular tachycardia (SVT) at 166bpm with aberrant conduction which she was subsequently administered 6 mg Adenosine IVP followed by an additional dose of Adenosine 12mg IVP however despite use of Adenosine, patient persisted with SVT. As such, Amiodarone bolus was administered followed by continuous infusion which she eventually converted to a normal sinus rhythm. Initial HS troponin level found normal at 4, with subsequent repeat level of 13, and then to 160. Initial potassium level found to be 3.1 with subsequent repeat of 3.2. Initial Magnesium level of 1.8. TSH level was found normal at 1.75. Urine toxicology is unremarkable. BNP level is normal at 68.31 which chest imaging reveals mild cardiomegaly with mild pulmonary vascular congestion. Echocardiogram (06/23/2024) was performed revealing a preserved LVEF of 55% with grade I diastolic dysfunction and normal bi-atrial size. At present time of consultation, telemetry reveals normal sinus rhythm. As there were concerns regarding rhythm identification, Electrophysiology services have now been involved for its evaluation. Past Medical History Past medical history includes hypertension, asthma, environmental allergies, and obesity Past Surgical History Reviewed Allergies: Coded Allergies: Hydromorphone (Verified Allergy, Unknown, 06/23/24) Latex (Verified Allergy, Unknown, 06/23/24) Current Medications Current Medications Medications (Trade) Dose Ordered Sig/Cindy Route PRN Reason Start Time Stop Time Status Last Admin Sodium Chloride (Saline Lock Ns) 10 ml Q8HR IV 06/23/24 22:00 06/24/24 14:39 Nifedipine (Procardia Xl (Time-Release)) 30 mg DAILY PO 06/24/24 10:00 06/24/24 10:17 DC Magnesium Sulfate/ Dextrose 100 ml @ 100 mls/hr Q1HR IV 06/24/24 09:00 Hold Potassium Chloride 100 ml @ 50 mls/hr Q2H IV 06/24/24 08:30 Hold Nifedipine (Procardia Xl (Time-Release)) 60 mg DAILY PO 06/25/24 10:00 06/24/24 13:27 DC Amiodarone HCl (Cordarone Tablet) 200 mg Q12HR PO 06/24/24 22:00 06/24/24 14:00 DC Nifedipine (Procardia Xl (Time-Release)) 90 mg DAILY PO 06/24/24 13:30 06/24/24 14:38 Metoprolol Tartrate (Lopressor Tablet) 25 mg BID PO 06/24/24 22:00 Amiodarone HCl (Cordarone Tablet) 200 mg HS PO 06/25/24 22:00 Review of Systems A 14-point review of systems is negative unless otherwise noted above Vital Signs Vital Signs Date Time Temp Pulse Resp B/P (MAP) Pulse Ox O2 Delivery O2 Flow Rate FiO2 06/24/24 16:45 98.2 74 18 161/82 (108) 96 98.2 06/24/24 08:00 Room Air* 0 21 Physical Exam Physical Exam: General: No acute distress. Awake and conversant. Eyes: Normal conjunctiva, anicteric. EOMI/PERRLA. ENT: Hearing grossly intact. No nasal discharge. Oral mucosa is moist. Neck: Neck is supple. No masses or thyromegaly, no JVD, No carotid bruit. Cardiovascular: RRR. S1 & S2 present. No murmur, rubs, or gallops. Extremities: No lower extremity swelling. No clubbing, cyanosis. 2+ radial pulses Respiratory: Respirations are non-labored. Lungs are clear to auscultation. Abdomen: Positive bowel sounds in all 4 quadrants, soft, non-distended, nontender. No pulsatile masses. : No costovertebral angle tenderness. Musculoskeletal: Normal ambulation. No extremity deformity. No extremity tenderness. Skin: Warm, dry, and intact. No rashes or ulcers evident Psych: Alert and oriented. Cooperative, Appropriate mood and affect, Normal judgment. Neuro: AAO x 4. CN II-XII grossly intact. Normal speech. Motor strength intact. No gross sensory deficits. Labs/Diagnostic Data Labs Test 06/24/24 14:19 06/24/24 07:58 06/23/24 16:19 06/23/24 13:36 Range/Units Troponin I High Sensitivity 28 </=34 ng/L White Blood Count 8.9 4.4-10.8 10^3/uL Red Blood Count 5.06 4.0-5.20 10^6/uL Hemoglobin 15.5 12.2-16.2 g/dL Hematocrit 45.8 36.0-46.0 % Mean Corpuscular Volume 90.5 80.0-100.0 fL Mean Corpuscular Hemoglobin 30.6 28.0-32.0 pg Mean Corpuscular Hemoglobin Concent 33.9 32.0-36.0 g/dL Red Cell Distribution Width 14.1 11.8-14.3 % Platelet Count 195 140-450 10^3/uL Mean Platelet Volume 10.7 6.9-10.8 fL Neutrophils (%) (Auto) 49.4 37.0-80.0 % Lymphocytes (%) (Auto) 41.2 10.0-50.0 % Monocytes (%) (Auto) 6.9 0.0-12.0 % Eosinophils (%) (Auto) 2.2 0.0-7.0 % Basophils (%) (Auto) 0.3 0.0-2.0 % Neutrophils # (Auto) 4.4 1.6-8.6 10 ^3/uL Lymphocytes # (Auto) 3.7 0.4-5.4 10 ^3/uL Monocytes # (Auto) 0.6 0-1.3 10 ^3/uL Eosinophils # (Auto) 0.2 0-0.8 10 ^3/uL Basophils # (Auto) 0 0-0.2 10 ^3/uL Nucleated Red Blood Cells 0.1 % Sodium Level 141 136-145 mmol/L Potassium Level 3.2 L 3.5-5.1 mmol/L Chloride Level 109 H 98-107 mmol/L Carbon Dioxide Level 26 20-31 mmol/L Anion Gap 6 5-15 Blood Urea Nitrogen 9 9-23 mg/dL Creatinine 0.75 0.550-1.02 mg/dL Glomerular Filtration Rate Calc 92 >90 mL/min BUN/Creatinine Ratio 12.0 10.0-20.0 Serum Glucose 93 74-106 mg/dL Hemoglobin A1c 5.3 <5.7 % A1C Calcium Level 9.3 8.7-10.4 mg/dL Magnesium Level 1.9 1.6-2.6 mg/dL Total Bilirubin 1.5 H 0.2-1.0 mg/dL Aspartate Amino Transferase (AST) 25 13-40 U/L Alanine Aminotransferase (ALT) 18 7-40 U/L Alkaline Phosphatase 129 H 46-116 U/L B-Type Natriuretic Peptide 108.31 0-100 pg/mL Total Protein 6.9 5.7-8.2 g/dL Albumin 4.1 3.2-4.8 g/dL Triglycerides Level 129 < 150 mg/dL Cholesterol Level 180 < 200 mg/dL LDL Cholesterol 114 H < 100 mg/dL HDL Cholesterol 53 40-59 mg/dL Urine Color Light-yellow Yellow Urine Clarity Turbid H Clear Urine pH 7.5 5.0-9.0 Urine Specific [place] 1.015 1.001-1.035 Urine Protein Negative Negative Urine Ketones Negative Negative Urine Blood Trace H Negative /uL Urine Nitrite Negative Negative Urine Bilirubin Negative Negative Urine Urobilinogen Normal Negative mg/dL Urine Leukocyte Esterase Negative Negative /uL Urine RBC 8 0 - 4 /hpf Urine WBC 3 0 - 5 /hpf Urine Squamous Epithelial Cells Few <5 /hpf Urine Amorphous Crystals Few None Seen /hpf Urine Bacteria None seen None Seen /hpf Urine Glucose Normal Normal mg/dL Urine Opiates Screen Neg NEGATIVE Urine Fentanyl Screen Neg NEGATIVE Urine Barbiturates Screen Neg NEGATIVE Urine Phencyclidine Screen Neg NEGATIVE Urine Amphetamines Screen Neg NEGATIVE Urine Benzodiazepines Screen Neg NEGATIVE Urine Cocaine Screen Neg NEGATIVE Urine Cannabinoids Screen Neg NEGATIVE Thyroid Stimulating Hormone (TSH) 1.75 0.55-4.78 uIU/mL Plan/Recommendation Assessment: This is a 59-year-old female who initially presented (06/23/2024) with reported palpitations. 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 She mentions at that time, her watch alerted her that her heart rate was elevated and given symptomatic nature she underwent subsequent evaluation within the ED. Upon ED arrival, 12-lead electrocardiogram was performed revealing supraventricular tachycardia (SVT) at 166bpm with aberrant conduction which she was subsequently administered 6 mg Adenosine IVP followed by an additional dose of Adenosine 12mg IVP however despite use of Adenosine, patient persisted with SVT. As such, Amiodarone bolus was administered followed by continuous infusion which she eventually converted to a normal sinus rhythm. Initial HS troponin level found normal at 4, with subsequent repeat level of 13, and then to 160. In itial potassium level found to be 3.1 with subsequent repeat of 3.2. Initial Magnesium level of 1.8. TSH level was found normal at 1.75. Urine toxicology is unremarkable. BNP level is normal at 68.31 which chest imaging reveals mild cardiomegaly with mild pulmonary vascular congestion. Echocardiogram (06/23/2024) was performed revealing a preserved LVEF of 55% with grade I diastolic dysfunction and normal bi-atrial size. At present time of consultation, telemetry reveals normal sinus rhythm. As there were concerns regarding rhythm identification, Electrophysiology services were involved for its evaluation. Supraventricular tachycardia, with aberrant conduction Diastolic heart failure, considered acute, without exacerbation Abnormal HS troponin (4-13-160), likely type II physiology secondary to tachyarrhythmia Hypomagnesemia Hyperlipidemia Hypertension Obesity Electrophysiology Suggestions for Management: Will need to follow up with outpatient EP services to undergo further event monitoring to identify potential need for ablation Start Metoprolol Tartrate 25mg po twice daily and reduce current Amiodarone to 200mg po qhs Proceed with close rate and rhythm surveillance and observe for tachy/bradyarrhythmias Follow up renal function/electrolytes and correct abnormalities Sustain Magnesium level greater than 2.0 Sustain Potassium level greater than 4.0 Consider outpatient ischemic work-up Proceed with close observation for overt signs of fluid overload Proceed with strict intakes, outputs, and daily weights Proceed with close hemodynamic surveillance Proceed with optimized blood pressure control Management in Telemetry Follow up Primary Cardiology recommendations Will proceed to follow from a cardiac perspective Further recommendations per clinical progression All available diagnostic labs, EKG's, and images were personally reviewed Patient's status, findings, and plan of care was reviewed and discussed with supervising physician Dr. Juarez, who is in agreement with current plan of care. Plan of care discussed with and agreed upon by patient / primary RN Prognosis: Guarded Thank you for allowing me to participate in the care of this patient. Further recommendations based on patients clinical course and progression, primary attending, and other consultants. Will continue to follow with primary attending. If you have any questions or concerns, please do not hesitate to contact me. A total of 75 minutes was spent reviewing the patient record, examining the patient, making a diagnostic and therapeutic plan, discussing this plan with medical personnel, following up on diagnostic studies and following the patient for clinical stability excluding any and all procedures. At least 50% of this time was spent in direct, [id number] contact. Plan discussed with: Patient (Patient and Primary RN ) TWIN LEOS Jun 24, 2024 22:30
[2024-06-25] MEDS ORDERED: NIFEdipine ER 30 MG TAB PO SCH (10:00)
--- NOTE | 2024-06-25 14:56 | DVHDSRES ---
Discharge Summary Date of Admission Resident Creating Document: JAMES MAY RESDIENT Jun 23, 2024 at 16:36 Date of Discharge: Jun 24, 2024 Admitting Diagnosis Possible atrial fibrillation Labs/Diagnostic Data: Laboratory Results Test 06/24/24 14:19 06/24/24 07:58 06/23/24 16:19 06/23/24 13:36 Troponin I High Sensitivity 28 ng/L (</=34) White Blood Count 8.9 10^3/uL (4.4-10.8) Red Blood Count 5.06 10^6/uL (4.0-5.20) Hemoglobin 15.5 g/dL (12.2-16.2) Hematocrit 45.8 % (36.0-46.0) Mean Corpuscular Volume 90.5 fL (80.0-100.0) Mean Corpuscular Hemoglobin 30.6 pg (28.0-32.0) Mean Corpuscular Hemoglobin Concent 33.9 g/dL (32.0-36.0) Red Cell Distribution Width 14.1 % (11.8-14.3) Platelet Count 195 10^3/uL (140-450) Mean Platelet Volume 10.7 fL (6.9-10.8) Neutrophils (%) (Auto) 49.4 % (37.0-80.0) Lymphocytes (%) (Auto) 41.2 % (10.0-50.0) Monocytes (%) (Auto) 6.9 % (0.0-12.0) Eosinophils (%) (Auto) 2.2 % (0.0-7.0) Basophils (%) (Auto) 0.3 % (0.0-2.0) Neutrophils # (Auto) 4.4 10 ^3/uL (1.6-8.6) Lymphocytes # (Auto) 3.7 10 ^3/uL (0.4-5.4) Monocytes # (Auto) 0.6 10 ^3/uL (0-1.3) Eosinophils # (Auto) 0.2 10 ^3/uL (0-0.8) Basophils # (Auto) 0 10 ^3/uL (0-0.2) Nucleated Red Blood Cells 0.1 % Sodium Level 141 mmol/L (136-145) Potassium Level 3.2 mmol/L (3.5-5.1) Chloride Level 109 mmol/L (98-107) Carbon Dioxide Level 26 mmol/L (20-31) Anion Gap 6 (5-15) Blood Urea Nitrogen 9 mg/dL (9-23) Creatinine 0.75 mg/dL (0.550-1.02) Glomerular Filtration Rate Calc 92 mL/min (>90) BUN/Creatinine Ratio 12.0 (10.0-20.0) Serum Glucose 93 mg/dL (74-106) Hemoglobin A1c 5.3 % A1C (<5.7) Calcium Level 9.3 mg/dL (8.7-10.4) Magnesium Level 1.9 mg/dL (1.6-2.6) Total Bilirubin 1.5 mg/dL (0.2-1.0) Aspartate Amino Transferase (AST) 25 U/L (13-40) Alanine Aminotransferase (ALT) 18 U/L (7-40) Alkaline Phosphatase 129 U/L (46-116) B-Type Natriuretic Peptide 108.31 pg/mL (0-100) Total Protein 6.9 g/dL (5.7-8.2) Albumin 4.1 g/dL (3.2-4.8) Triglycerides Level 129 mg/dL (< 150) Cholesterol Level 180 mg/dL (< 200) LDL Cholesterol 114 mg/dL (< 100) HDL Cholesterol 53 mg/dL (40-59) Urine Color Light-yellow (Yellow) Urine Clarity Turbid (Clear) Urine pH 7.5 (5.0-9.0) Urine Specific [place] 1.015 (1.001-1.035) Urine Protein Negative (Negative) Urine Ketones Negative (Negative) Urine Blood Trace /uL (Negative) Urine Nitrite Negative (Negative) Urine Bilirubin Negative (Negative) Urine Urobilinogen Normal mg/dL (Negative) Urine Leukocyte Esterase Negative /uL (Negative) Urine RBC 8 /hpf (0 - 4) Urine WBC 3 /hpf (0 - 5) Urine Squamous Epithelial Cells Few /hpf (<5) Urine Amorphous Crystals Few /hpf (None Seen) Urine Bacteria None seen /hpf (None Seen) Urine Glucose Normal mg/dL (Normal) Urine Opiates Screen Neg (NEGATIVE) Urine Fentanyl Screen Neg (NEGATIVE) Urine Barbiturates Screen Neg (NEGATIVE) Urine Phencyclidine Screen Neg (NEGATIVE) Urine Amphetamines Screen Neg (NEGATIVE) Urine Benzodiazepines Screen Neg (NEGATIVE) Urine Cocaine Screen Neg (NEGATIVE) Urine Cannabinoids Screen Neg (NEGATIVE) Thyroid Stimulating Hormone (TSH) 1.75 uIU/mL (0.55-4.78) Other Laboratory Tests 06/24/24 07:58 Brief Hx & Hospital Course: This is a 59-year-old female patient who presents to the emergency room with palpitations. 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 She mentions that her watch alerted her that her heart rate was elevated in the 160's. 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 She was then brought to the emergency room by coworkers for further evaluation. Initial twelve lead electrocardiogram reveals a wide complex tachycardia with left bundle branch block and prolonged QT interval. ER staff provided the patient with 6 mg of adenosine IV x1 followed by adenosine 12 mg IV x1 with no change in rhythm. ER staff then initiated the patient on an amiodarone bolus and drip and the patient was noted to convert into a normal sinus rhythm. Significant past medical history includes hypertension, asthma, environmental allergies, and obesity. PMHx: Hypertension, asthma, PSHx: Tubal ligation Family history: Noncontributory Social history: Denies smoking, using alcohol and any other drug use. Home medication: albuterol as needed Allergic history: Lasix and hydromorphone During hospital admission, the EKG and monitor were showing ventricular tachycardia. the patient was given adenosine, but the rhythm could not control, by given IV amiodarone the rhythm converted to the sinus and the patient was put on telemetry. Cardiology was consulted, performed echo shows EF 55%, started oral amiodarone. EP evaluated the patient, recommended metoprolol 25 mg twice daily, amiodarone 200 mg during the night and outpatient follow up. Patient was also given nifedipine for the high blood pressure.Electrolyte imbalance corrected. The patient eloped on 03/04 5:00 p.m. on 06/24/2024. Consults/Reason for consult Cardiology: Ventricular tachycardia Project Developer: Arrhythmia Operations or Procedures [facility] [id number] [place] [id number] Ph: [phone] DIAGNOSTIC IMAGING Diagnostic Imaging Report : [id number] Signed PATIENT: SEVERIANO BRISENO ACCT: [id number] UNIT: [id number] : 1965 LOC: [facility] ROOM / BED: [facility]5T / B AGE / SEX: 59 / F ADM STATUS: ADM IN SERVICE 1302 ORDERING PHYSICIAN: FATIMAH FORMAN MD PROCEDURE(s): ECIDC - ECHO 2D MODE CARDIAC DOP REASON: ef ORDER NUMBER(s): [id number], ACCESSION NUMBER(s): [id number] APPROVED REPORT EXAM: LIMITED Two-dimensional and M-mode echocardiogram with Doppler and color Doppler. Blood Pressure: 133/77 mmHg INDICATION EF RISK FACTORS Obesity: Height: 5' 4", Weight: 200 DIMENSIONS LVDd 4.0 (3.8-5.7cm) LA (2D) 4.2 (1.9-4.0cm) Aortic Root 2.5 (2.0- 3.7cm) LVDs 2.5 (2.5-4.0cm) LA (MM) (1.9-4.0cm) Aortic Cusp Exc 1.5 (1.5- 2.0cm) EF (%) 66.0 (55-70%) Rt. Atrium 3.9 (1.9-4.0cm) Asc. Aorta cm IVSd 1.0 (0.7-1.1cm) RV (D) (1.8-2.4cm) PWd 1.1 (0.7-1.1cm) Mitral Valve Mitral Mitral Stenosis E wave 0.80m/s MV Mean GR. mmHg A wave 1.10m/s MV Peak GR. mmHg E/A ratio 0.7 2D MVA cm2 Aortic Valve Aortic Valve Aortic Stenosis V1 0.80m/s AO Mean GR. 5mmHg V2 1.40m/s AO Peak GR. 9mmHg LVOT Diameter 2.0 (1.8-2.4cm) Doppler HITESH 1.79cm2 Other Information Quality : Technically Limited Rhythm : Technically limited study due to body habitus. Conclusion Normal left ventricular size and dimension. Normal right ventricular systolic function estimated ejection fraction 55%. There is a grade 1 diastolic dysfunction. Normal right ventricular size and dimension. Normal right ventricular systolic function. Normal biatrial size and dimension. Normal aortic valve structure and function. Normal mitral valve structure and function. Normal tricuspid valve structure and function. The pulmonary valve is grossly normal. No pericardial effusion. SIGNED BY: FRANCES BENJAMIN MD SIGNED DATE/TIME: 06/24/24 1018 CC: [place] [id number] Ph: [phone] DIAGNOSTIC IMAGING Diagnostic Imaging Report : [id number] Signed PATIENT: ESVERIANO BRISENO ACCT: [id number] UNIT: [id number] : 1965 LOC: ER ROOM / BED: / AGE / SEX: 59 / F ADM STATUS: REG ER SERVICE 1302 ORDERING PHYSICIAN: FATIMAH FORMAN MD PROCEDURE(s): CXRP - CHEST PORTABLE REASON: sob ORDER NUMBER(s): [id number], ACCESSION NUMBER(s): [id number] EXAM: XY CHEST PORTABLE Indication: sob Technique: Single frontal view of the chest was obtained Comparison: None FINDINGS: Lines and Tubes: None Lungs: No focal consolidation. Pulmonary edema. Pleura: No effusion. No pneumothorax. Cardiomediastinal contours: Prominence of the cardiac silhouette. Bones: No acute osseous abnormality. IMPRESSION: Mild cardiomegaly versus portable technique of exam. Mild pulmonary edema. ATED BY: JOVANIN TONY MD DICTATED DATE/TIME: 06/23/24 1326 SIGNED BY: JOVANNI TONY MD SIGNED DATE/TIME: 06/23/24 1326 CC: Condition at Discharge: Undetermined Final Diagnosis/Problems List Acute hypoxic respiratory failure, likely due to heart failure/pulmonary congestion Possible Acute diastolic and systolic heart failure, likely due to ventricular tachycardia Wide complex tachycardia/Ventricular tachycardia/PSVT with aberrant, likely due to electrolyte imbalance/ischemia Possible atrial flutter Non ST-elevation LA type 2, likely due to ventricular tachycardia Hypertension History of Asthma Obesity, BMI 36.0 Hypokalemia Hypomagnesemia Dyslipidemia Discharge Disposition: Eloped Discharge Statement: "Patient was advised to return to the ER or call 911 if any headaches, dizziness, shortness of breath, chest pain, abdominal pain, bleeding, fevers, or worsening of medical condition. Patient was counseled about treatment plan, medications, possible side effects, patientverbalized understanding. All questions were answered to the best of my ability. This discharge took greater then 30 minutes in planning, reviewing documentation, counseling the patient, and discussing with other team members." ASSESSMENT ASSESSMENT Assessment Date of Service: Jun 24, 2024 Billing Provider: MEENA HERNANDEZ MD Common Visit Codes: 24662-PJR/OBS DISCH DAY >30min JAMES MAY RESDIENT Jun 25, 2024 14:56 MEENA HERNANDEZ MD Jun 27, 2024 11:58
[2024-06-25] MEDS ORDERED: AMIODARONE HCL 200 MG TAB PO SCH (22:00)
== END 2024-06-24 18:45 | disposition left against medical advice (07) | DRG 194 ==
LOC: ER 12:44 → TELE 16:36 → TELE-WESTW 23:35
PROVIDERS: ADMIT Student in an Organized Health Care Education/Training Program; ATTEND Student in an Organized Health Care Education/Training Program
DX: I11.0 Hypertensive heart disease with heart failure (principal); J96.01 Acute respiratory failure with hypoxia; I21.A1 Myocardial infarction type 2; I47.10 Supraventricular tachycardia, unspecified; I48.91 Unspecified atrial fibrillation; I50.41 Acute combined systolic (congestive) and diastolic (congestive) heart failure; Z53.29 Procedure and treatment not carried out because of patient's decision for other reasons; E66.9 Obesity, unspecified; E87.6 Hypokalemia; J45.909 Unspecified asthma, uncomplicated; I48.92 Unspecified atrial flutter; I44.7 Left bundle-branch block, unspecified; E78.5 Hyperlipidemia, unspecified; E83.42 Hypomagnesemia; Z88.5 Allergy status to narcotic agent; Z68.36 Body mass index [BMI] 36.0-36.9, adult; Z79.899 Other long term (current) drug therapy
CPT/HCPCS: 36415; 71045; 80048; 80053; 80061; 80307; 81001; 83036; 83735; 83880; 84443; 84484; 85025; 93005; 93306; 99291; G0378; J2405; J3470

== ENCOUNTER 2025-02-23 07:37 | Outpatient (CLI) | payer BC ==
[2025-02-24 07:38] LABS: Hematocrit 45.6 % (36.0-46.0); Hemoglobin 15.7 g/dL (12.2-16.2); Mean Corpuscular Hemoglobin 30.8 pg (28.0-32.0); Mean Corpuscular Volume 89.1 fL (80.0-100.0); Nucleated Red Blood Cells % 0.1 %; Urine Protein, UAD Negative (Negative)
[2025-02-24 07:54] LABS: Alanine Aminotransferase 21 U/L (7-40); Albumin 4.4 g/dL (3.2-4.8); Anion Gap 9 (5-15); BUN/Creatinine Ratio 12.9 (10.0-20.0); Blood Urea Nitrogen 9 mg/dL (9-23); Calcium 8.8 mg/dL (8.7-10.4); Carbon Dioxide 28 mmol/L (20-31); Cholesterol 161 mg/dL (< 200); Glucose 89 mg/dL (74-106); HDL Cholesterol 48 mg/dL (40-59); Magnesium 1.9 mg/dL (1.6-2.6); Potassium 3.6 mmol/L (3.5-5.1); Total Protein 6.9 g/dL (5.7-8.2); Triglycerides 116 mg/dL (< 150)
[2025-02-24 08:00] LABS: Alkaline Phosphatase 124 U/L (46-116); Bilirubin, Total 1.4 mg/dL (0.2-1.0); Chloride 109 mmol/L (98-107); Sodium 146 mmol/L (136-145)
== END 2025-02-23 17:00 | disposition home or self-care (01) ==
LOC: LAB 07:37
PROVIDERS: ATTEND Internal Medicine
DX: Z12.11 Encounter for screening for malignant neoplasm of colon (principal); I47.10 Supraventricular tachycardia, unspecified
CPT/HCPCS: 36415; 80053; 80061; 81001; 82088; 82270; 83735; 84439; 84443; 85025; 85652

== ENCOUNTER 2025-04-19 06:51 | Day surgery (SDC) | payer BC ==
[2025-04-17 11:04] LABS: Hematocrit 44.9 % (36.0-46.0); Hemoglobin 15.5 g/dL (12.2-16.2); Mean Corpuscular Hemoglobin 30.7 pg (28.0-32.0); Mean Corpuscular Volume 88.5 fL (80.0-100.0); Nucleated Red Blood Cells % 0.2 %
[2025-04-17 11:16] LABS: INR 1.0 (0.9-1.15); Partial Thromboplastin Time 27.6 SEC (24.5-34.5); Prothrombin Time 10.6 sec (9.3-11.8)
[2025-04-17 11:24] LABS: Alanine Aminotransferase 21 U/L (7-40); Albumin 4.2 g/dL (3.2-4.8); Anion Gap 10 (5-15); BUN/Creatinine Ratio 17.6 (10.0-20.0); Bilirubin, Total 0.8 mg/dL (0.2-1.0); Blood Urea Nitrogen 13 mg/dL (9-23); Calcium 8.9 mg/dL (8.7-10.4); Carbon Dioxide 27 mmol/L (20-31); Glucose 91 mg/dL (74-106); Potassium 3.7 mmol/L (3.5-5.1); Sodium 145 mmol/L (136-145); Total Protein 7.1 g/dL (5.7-8.2)
[2025-04-17 11:26] LABS: Alkaline Phosphatase 125 U/L (46-116); Chloride 108 mmol/L (98-107)
[2025-04-19] VITALS (9 sets, daily range): BP systolic 148–175; BP diastolic 70–82; PULSE 55–66; RESP 12–15; TEMP 98; O2SAT 93–98
[~2025-04-19] VITALS: Ht 162.6 cm; Wt 93.0 kg
[~2025-04-19 06:51] MED LIST: ALBU108A5 IN; ASPI-543 PO; EPIN0.1I11 IJ; METO25TA93 PO
[2025-04-19] MEDS: IODIXANOL 320MG/ML 100ML BTL IV ONE (09:32)
[2025-04-19] MEDS: VERAPAMIL 2.5MG/ML INJ 2ML VIAL IV ONE (09:36)
[2025-04-19] MEDS: HEPARIN SODIUM (PORCINE) 5000 UNITS/ML 1ML VIAL ONE (09:36)
[2025-04-19] MEDS: ANGIOMAX 250 MG VIAL IV ONE (09:36)
[2025-04-19] MEDS: fentaNYL CITRATE 100 MCG/2 ML VL ONE (09:37)
[2025-04-19] MEDS: SODIUM CHL 0.9% 0 ML ONE (09:37)
[2025-04-19] MEDS: MIDAZOLAM HCL 2MG/2ML 2ml VIAL (1mg/ml) ONE (09:37)
[2025-04-19] MEDS: LIDOCAINE 2%HCL (LOCAL ANESTH.) INJ 20ML MDV ONE (09:37)
--- NOTE | 2025-04-19 10:18 | DVHOP2 ---
Operative Report - 2 Report Details Date: 04/19/25 Preop Diagnosis: CAD Postop Diagnosis: Normal coronaries Surgeon: Bruce Hansen MD Anesthesiologist: Conscious sedation Anesthesia: Mac, Local Consent: The patient was informed of the risks and benefits of the procedure. These include but are not limited to complications of anesthesia, postoperative infection, incomplete relief of symptoms, recurrence of symptoms, damage to blood vessels, nerves and tendons, deep venous thrombosis, pulmonary embolism and possible need for repeat surgery in the future. Complications: No complications Findings: Normal coronaries Indications for Surgery: Chest pain Name of Procedure Performed Left heart catheterization. Bilateral cine coronary angiography. Left ventriculography. Procedure Details Procedure Details: Prior local anesthesia with 2% lidocaine to the right wrist and full informed consent obtained the patient was prepped and draped in the usual fashion and with the ultrasound guidance we found the radial artery. We placed a six [place] slim sheath followed by a multipurpose catheter to cannulate both right and left coronary ostia and ventriculography. No complications Hemodynamics: Aortic blood pressure was 160 over 70. End-diastolic pressure was five. There was no gradient across the aortic valve on pullback. Coronary anatomy: The RCA is a medium vessel it is nondominant. It is normal. Left main is large and normal. Left anterior descending is a large vessel it is normal in its proximal mid and distal segment. The diagonals and septals are normal. The circumflex is large. It is dominant. It gives off the PDA and three posterolateral branches that are normal. The circumflex in its entirety is normal. Ventriculography in the MORAES projection shows an EF of 65% no wall motion abnormalities discernible Impression: Normal left ventricular end-diastolic pressure at rest with normal ejection fraction. Normal coronaries. Recommendations: Medical therapy is warranted continue risk factor modification. Condition Good Disposition Home Date of Service: Apr 19, 2025 Billing Provider: BRUCE HANSEN Sr., MD Cardiology Common Codes: 07708-BRXHFHH INP/OBS CARE (High) Cardiology Procedure Codes: 61840-GUWV HEART CATH W/INTRA INJ BRUCE HANSEN Sr., MD Apr 19, 2025 10:18
== END 2025-04-19 12:50 | disposition home or self-care (01) ==
LOC: CATH 06:51
PROVIDERS: ATTEND Internal Medicine
DX: I25.10 Atherosclerotic heart disease of native coronary artery without angina pectoris (principal); R07.9 Chest pain, unspecified
CPT/HCPCS: 36415; 80053; 85025; 85610; 85730; 93458; C1894; J1644; J2250; J3010; Q9967; 99152